=== PATIENT | female | born 1980 | race Caucasian/White ===

== ENCOUNTER 2018-07-26 12:19 | Emergency (ER) | payer BC, OTHER ==
[2018-07-26 12:44] VITALS: RESP 20
[2018-07-26 14:16] LABS: Basophils % (A) 1 %; Eosinophils % (A) 1 %; HCT 42.1 % (34.0-46.0); HGB 13.7 gm/dL (11.4-16.0); Lymphocytes % (A) 28 %; MCH 30.9 pg (25.0-35.0); MCHC 32.5 g/dL (31.0-37.0); Mean Platelet Volume 6.7; Monocytes # (A) 0.5 k/uL (0-1.0); Monocytes % (A) 7 %; Neutrophils # (A) 4.4 k/uL (1.3-7.7); Neutrophils % (A) 62 %; Platelet Count 315 k/uL (150-450); RBC 4.43 m/uL (3.80-5.40); RDW 13.2 % (11.5-15.5); WBC 7.2 k/uL (3.8-10.6)
[2018-07-26 14:22] LABS: Appearance,Urine Clear (Clear); Bilirubin,Urine Negative (Negative); Blood,Urine Negative (Negative); Color,Urine Yellow; Glucose,Urine (UA) Negative (Negative); Ketones,Urine 2+ (Negative); Leukocyte Esterase,Urine Trace (Negative); Mucus,Urine Many /hpf; Nitrite,Urine Negative (Negative); Protein,Urine Trace (Negative); RBC,Urine 1 /hpf (0-5); Specific Gravity,Urine 1.028 (1.001-1.035); Squamous Epithelial Cell,Urine 3 /hpf (0-4); WBC,Urine 2 /hpf (0-5)
[2018-07-26 14:28] LABS: ALT 28 U/L (9-52); AST 24 U/L (14-36); Albumin 4.2 g/dL (3.5-5.0); Alkaline Phosphatase 97 U/L (38-126); Anion Gap 10 mmol/L; Blood Urea Nitrogen 18 mg/dL (7-17); Calcium 9.6 mg/dL (8.4-10.2); Carbon Dioxide 27 mmol/L (22-30); Chloride 105 mmol/L (98-107); Glucose 94 mg/dL (74-99); Potassium 4.5 mmol/L (3.5-5.1); Sodium 142 mmol/L (137-145); Total Bilirubin 0.5 mg/dL (0.2-1.3); Total Protein 7.1 g/dL (6.3-8.2)
--- NOTE | 2018-07-26 14:54 | XR ---
EXAMINATION TYPE: XR chest 1V, XR KUB DATE OF EXAM: 07/26/2018 COMPARISON: NONE HISTORY: Seizure and altered mental status. TECHNIQUE: Single frontal view of the chest is obtained. Single KUB projection of the abdomen was per formed. FINDINGS: There is a marked S-shaped scoliotic curvature of the visualized thoracolumbar spine surgic ally fixated with spinal fusion rods. There is resultant widening of the right rib interspaces and na rrowing on the left. There is also mediastinal shift to the right. No focal consolidation, pleural ef fusion or pneumothorax is seen within the lungs. 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 No proximal dilated large or small bowel is seen. No abnormal calcification in the abdomen. Phlebol iths are noted within the right low pelvis. IMPRESSION: Fecal impaction with a large rectal fecal ball distending the rectum up to 12.7 cm. No d ilated large or small bowel to suggest obstructive sequela of the impaction at this time. No acute ca rdiopulmonary process.
--- NOTE | 2018-07-26 15:20 | ED ---
General Adult HPI - General Chief complaint: Seizure Stated complaint: Seizure Time Seen by Provider: 07/26/18 12:20 Source: EMS, RN notes reviewed, Caregiver Mode of arrival: EMS Limitations: altered mental status - History of Present Illness Initial comments: This is a 38-year-old female presents emergency Department with severe developmental delay. Patient was witnessed to have a seizure today that lasted about 8 minutes which is about twice as long as he normally do. Patient's family states that is the reason they brought her to the emergency department. Patient's family states currently she is at her baseline. Patient has not recently been sick. Patient has not had cough patient has not had any fever recently. According to family she does not have any nausea vomiting or diarrhea recently. Family states she's been acting normal over the last few days and today up until she had the seizure. Again currently family states she is at her baseline. - Related Data Home Medications Medication Instructions Recorded Confirmed Cefuroxime Axetil [Ceftin] 500 mg PO BID 07/26/18 07/26/18 Diphenoxylate HCl/Atropine 1 tab PO 5XD 07/26/18 07/26/18 [Lomotil 2.5-0.025 mg Tablet] Montelukast [Singulair] 10 mg PO DAILY 07/26/18 07/26/18 OXcarbazepine 600 mg PO BID 07/26/18 07/26/18 Omeprazole 20 mg PO DAILY 07/26/18 07/26/18 PARoxetine [Paxil] 10 mg PO DAILY 07/26/18 07/26/18 Promethazine/Dextromethorphan 5 ml PO Q8H PRN 07/26/18 07/26/18 [Promethazine-Dm Syrup] methylPREDNISolone Dose Pack See Taper PO DIRECTED 07/26/18 07/26/18 [Medrol Dose Pack] Allergies Allergy/AdvReac Type Severity Reaction Status Date / Time risperidone [From Risperdal] Allergy Unknown Verified 07/26/18 13:21 Review of Systems ROS Statement: Those systems with pertinent positive or pertinent negative responses have been documented in the HPI. ROS Other: All systems not noted in ROS Statement are negative. Past Medical History Past Medical History: Seizure Disorder Additional Past Medical History / Comment(s): developmental delay, asbergers, cerebral palsy History of Any Multi-Drug Resistant Organisms: None Reported Past Surgical History: Unable to Obtain Past Psychological History: No Psychological Hx Reported Smoking Status: Never smoker Past Alcohol Use History: None Reported Past Drug Use History: None Reported General Exam - General Exam Comments Initial Comments: GENERAL: Patient is well-developed and well-nourished. Patient is nontoxic and well- hydrated and is in no acute distress. Patient is flailing in the bed but family states this is her baseline. ENT: Neck is soft and supple. No significant lymphadenopathy is noted. Oropharynx is clear. Moist mucous membranes. Neck has full range of motion without eliciting any pain. EYES: The sclera were anicteric and conjunctiva were pink and moist. PULMONARY: Unlabored respirations. Good breath sounds bilaterally. No audible rales rhonchi or wheezing was noted. CARDIOVASCULAR: There is a regular rate and rhythm without any murmurs gallops or rubs. ABDOMEN: Soft and nontender with normal bowel sounds. SKIN: Skin is clear with no lesions or rashes and otherwise unremarkable. NEUROLOGIC: Patient is alert and oriented to 0. Patient appears to move all 4 extremities and according to family they are moving the way they typically move. I cannot assess her sensation or strength because she does not follow commands. LYMPHATICS: No significant lymphadenopathy is noted PSYCHIATRIC: Unable to assess secondary to her baseline mental impairment Limitations: altered mental status Course Vital Signs 07/26/18 07/26/18 12:38 15:05 Temperature 97.3 F L 97.0 F L Pulse Rate 101 H 79 Respiratory 20 20 Rate Blood Pressure 137/94 130/93 O2 Sat by Pulse 92 L 97 Oximetry Medical Decision Making - Lab Data Result diagrams: 07/26/18 13:20 07/26/18 13:20 Lab Results 07/26/18 07/26/18 07/26/18 Range/Units 13:20 13:20 13:20 WBC 7.2 (3.8-10.6) k/uL RBC 4.43 (3.80-5.40) m/uL Hgb 13.7 (11.4-16.0) gm/dL Hct 42.1 (34.0-46.0) % MCV 95.0 (80.0-100.0) fL MCH 30.9 (25.0-35.0) pg MCHC 32.5 (31.0-37.0) g/dL RDW 13.2 (11.5-15.5) % Plt Count 315 (150-450) k/uL Neutrophils % 62 % Lymphocytes % 28 % Monocytes % 7 % Eosinophils % 1 % Basophils % 1 % Neutrophils # 4.4 (1.3-7.7) k/uL Lymphocytes # 2.0 (1.0-4.8) k/uL Monocytes # 0.5 (0-1.0) k/uL Eosinophils # 0.0 (0-0.7) k/uL Basophils # 0.0 (0-0.2) k/uL Sodium 142 (137-145) mmol/L Potassium 4.5 (3.5-5.1) mmol/L Chloride 105 (98-107) mmol/L Carbon Dioxide 27 (22-30) mmol/L Anion Gap 10 mmol/L BUN 18 H (7-17) mg/dL Creatinine 0.63 (0.52-1.04) mg/dL Est GFR (CKD-EPI)AfAm >90 (>60 ml/min/1.73 sqM) Est GFR (CKD-EPI)NonAf >90 (>60 ml/min/1.73 sqM) Glucose 94 (74-99) mg/dL Calcium 9.6 (8.4-10.2) mg/dL Total Bilirubin 0.5 (0.2-1.3) mg/dL AST 24 (14-36) U/L ALT 28 (9-52) U/L Alkaline Phosphatase 97 (38-126) U/L Total Protein 7.1 (6.3-8.2) g/dL Albumin 4.2 (3.5-5.0) g/dL Urine Color Yellow Urine Appearance Clear (Clear) Urine pH 6.0 (5.0-8.0) Ur Specific [place] 1.028 (1.001-1.035) Urine Protein Trace H (Negative) Urine Glucose (UA) Negative (Negative) Urine Ketones 2+ H (Negative) Urine Blood Negative (Negative) Urine Nitrite Negative (Negative) Urine Bilirubin Negative (Negative) Urine Urobilinogen 3.0 (<2.0) mg/dL Ur Leukocyte Esterase Trace H (Negative) Urine RBC 1 (0-5) /hpf Urine WBC 2 (0-5) /hpf Ur Squamous Epith Cells 3 (0-4) /hpf Urine Mucus Many H (None) /hpf Disposition Clinical Impression: Generalized seizure Disposition: HOME SELF-CARE Condition: Good Instructions (If sedation given, give patient instructions): Recurrent Seizures in Adults (ED) Is patient prescribed a controlled substance at d/c from ED?: No Referrals: Angel Torres MD [Primary Care Provider] - 1-2 days Time of Disposition: 15:20
[2018-07-26 15:56] VITALS: BP 135/82; PULSE 88; TEMP 97.2
== END 2018-07-26 15:50 | disposition home or self-care (01) ==
LOC: SUPCPDRO 12:19 → EC 12:19
DX: G40.309 Generalized idiopathic epilepsy and epileptic syndromes, not intractable, without status epilepticus (principal); R62.50 Unspecified lack of expected normal physiological development in childhood; Z79.51 Long term (current) use of inhaled steroids; Z79.899 Other long term (current) drug therapy; Z88.8 Allergy status to other drugs, medicaments and biological substances
CPT/HCPCS: 36415; 71045; 74018; 80053; 80183; 81001; 85025; 99284